=== PATIENT | male | born 1995 | race Caucasian/White ===

== ENCOUNTER 2023-09-05 18:47 | Emergency (ER) | payer OTHER, SELFPAY ==
--- NOTE | ~2023-09-05 | XR_ITS ---
EXAM: XR foot LT min 3V DATE: 09/05/2023 19:59 HISTORY: pain . COMPARISON: None available. FINDINGS: Normal mineralization. No fracture or dislocation. No lytic or blastic lesion. Joint space s are maintained. No erosion or periosteal change. Lateral forefoot soft tissue swelling. IMPRESSION: No acute osseous finding in the left foot. Reviewed, dictated and finalized at location K.
[2023-09-05 18:50] VITALS: BP 136/94; PULSE 101; RESP 19; TEMP 37.1; O2SAT 94
--- NOTE | 2023-09-05 19:38 | ED.EXTPRO ---
HPI - Extremity Problem General Chief complaint: Extremity Problem,Nontraumatic Stated complaint: left great toe pain Source: patient Mode of arrival: ambulatory Limitations: no limitations History of Present Illness HPI Narrative: patient is a 28-year-old male with a left foot pain for the past few days. He is having redness and difficulty moving the toe of the great toe. MD Complaint: extremity pain ( Left great toe), extremity swelling ( left great toe), joint swelling ( left great toe) and joint paint ( left great toe) Onset (ago): day(s) (3) Pain Consistency: constant Location: left, lower extremity and toe ( great toe) Severity scale (1-10): 5 Quality: burning and sharp Radiation: none Relieving factors: immobilization Exacerbating factors: range of motion, weight bearing, walking, exertion and palpation Associated symptoms: denies other symptoms Related Data Allergies Allergy/AdvReac Type Severity Reaction Status Date / Time loratadine Allergy Vomiting Verified 09/05/23 18:49 codeine AdvReac Vomiting Verified 09/05/23 18:49 Review of Systems Review of Systems: All systems reviewed & are unremarkable except as noted in HPI and below Constitutional: Constitutional: Reports no additional constitutional complaints Eyes: Eyes: Reports no additional eye complaints ENT: Reports system reviewed and no additional complaints, except as documented Cardiovascular: Cardiovascular: Reports no additional cardiovascular complaints Respiratory: Respiratory: Reports no additional respiratory complaints Gastrointestinal: Gastrointestinal: Reports no additional gastrointestinal complaints Genitourinary: Genitourinary: Reports no additional male genitourinary complaints Musculoskeletal: Musculoskeletal: Reports no additional musculoskeletal complaints Integumentary/Breasts: Skin/Breast: Reports system reviewed and no additional complaints, except as docu Neurologic: Reports system reviewed and no additional complaints, except as documented Psychiatric: Psychiatric: Reports no additional psychiatric complaints Endocrine: Endocrine: Reports no additional endocrine complaints Hematologic/Lymphatic: Hematologic/Lymphatic: Reports no additional hematologic/lymphatic complaints Allergic/Immunologic: Allergic/Immunologic: Reports no additional allergic/immunologic complaints Exam Const: General: healthy appearing Nutritional Appearance: well nourished Orientation/consciousness: patient oriented x3 HENMT: Head: normal to inspection Ears: external ears normal Face/Nose/Sinus: Normal external nose present Eyes: Conjunctivae: conjunctivae normal Pupils: Equal, round and reactive pupils present EOM: EOMs intact bilaterally Neck: Neck: normal visual inspection Chest: Chest palpation & inspection: normal inspection of the chest Resp: Effort & Inspection: normal respiratory effort and not labored Auscultation: clear to auscultation bilaterally Cardio: Rate: regular rate Rhythm: regular rhythm Heart sounds: no murmurs GI: Inspection: non-distended GI Palp: Yes Soft to palpation and No Tenderness to palpation present (GI) Auscultation: normal bowel sounds : General: Yes bladder normal to palpation Back/Spine/Pelvis: Back: no CVA tenderness Skin: General skin exam: normal color Rashes: rash noted Wounds: no wounds Other: left great toe is red at the MCP joint region and locally; tender to palpation and range of motion Neuro: General: patient oriented x3 Cranial nerves: Yes Nystagmus not present Speech: normal speech Extrem: General: normal to inspection Psych: Mental Status: mental status grossly normal Affect: normal affect Attitude: cooperative Course Vital Signs Vital signs: Vital Signs Oxygen Delivery Room Air 09/05/23 18:47 Temperature 37.1 C 09/05/23 18:50 Pulse Rate 101 H 09/05/23 18:50 Respiratory Rate 19 09/05/23 18:50 Blood Pressure 136/94 H 09/05/23 18:50 P
[2023-09-05] MEDS: KETOROLAC (*BKC) 60 MG/2 ML VIAL IM (19:40)
[2023-09-05] MEDS: COLCHICINE 0.6 MG TABLET 1.2 MG PO (19:49)
--- NOTE | 2023-09-05 19:54 | PC.NURSE ---
0 introduced self to pt, resumed care at this time.
[2023-09-05] MEDS: CEPHALEXIN 500 MG CAPSULE PO (20:25)
[2023-09-05 20:28] VITALS: BP 157/84; PULSE 87; RESP 20; TEMP 36.9; O2SAT 99
== END 2023-09-05 20:28 | disposition home or self-care (01) ==
PROVIDERS: Emergency Provider Emergency Medicine; PCP Physician Assistant
DX: M10.072 Idiopathic gout, left ankle and foot (principal)
CPT/HCPCS: 73630; 96372; 99283; A9270; J1885

== ENCOUNTER 2025-01-27 15:23 | Outpatient (RCR) | payer OTHER, SELFPAY ==
--- NOTE | 2025-01-27 16:45 | OPREHPOC ---
Outpatient Therapy Plan of Care This is a Multidisciplinary Plan of Care that may contain components documented by all disciplines (PT, OT, and ST.) PT Problem 1 PT Problem #1 Knowledge Deficit PT Goal 1 Goal / Goal Update Independent and compliant with HEP. Target Visit 2 PT Problem 2 PT Problem #2 Pain PT Goal 1 Goal / Goal Update Pt to report no worse than 5/10 pain in the low back. Target Visit 10 PT Problem 3 PT Problem #3 Impaired Strength PT Goal 1 Goal / Goal Update Pt to improve bilat hip strength to 4+/5. Pt to improve lower abdominal strength to 4/5. Target Visit 10 PT Problem 4 PT Problem #4 Impaired Range of Motion PT Goal 1 Goal / Goal Update Pt to demonstrate full pain-free AROM of the lumbar spine for improved mobility to perform work activities. Target Visit 10 PT Problem 5 PT Problem #5 Impaired Functional Mobility PT Goal 1 Goal / Goal Update Pt to report 20% reduction in perceived disability on Oswestry. Pt to report being able to stand for more than 2 hours at work without back pain. Target Visit 10
--- NOTE | 2025-01-27 16:45 | PTOPEVAL1 ---
Assessment and note entered by aLuren Lucas, PT Evaluation Information Assessment Status Evaluation ICD-10 Condition Codes (PT) Radiculopathy, lumbar region M54.16 Onset 05/22/2024 Subjective Information Pt reports he's been having back pain since May of this year. He was prescribed gabapentin and prednisone but the pain has persisted despite taking these. He reports it started with his legs going numb and now he moreso is just having back pain. He reports his legs don't go numb very often and when they do he sits down and it subsides. Standing/walking is worse than sitting, and he currently works overnights at [employer]. 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 He reports that he's unable to stand and walk for more than 30-60 minutes without pain, and by the time he's standing for more than 2 hours the pain is crippling. The pain wakes him up at night frequently, he reports he is able to fall asleep on his stomach and that all other positions are painful. He also notes that sneezing makes his back and his legs give out. He did get an MRI at [facility] which showed a mild disc bulge at L4-5 and mild spondylosis and anterolisthesis of L5 on S1. Reported Pain Level Pain Score 4: Self Report Assessment PT Clinical Summary Mr. Hodge is a 29 yo male presenting to skilled PT evaluation for lower back pain with MRI evidence of L4-5 bulging disc, lumbar spondylosis , and L5-S1 anterolisthesis. He demonstrates lower back pain with occasional radiating pain and numbness that causes him to fall, as well as moderate hip and abdominal mm weakness and reproductive of pain with resistive testing. He also demonstrates impaired lumbar AROM with pain reproduced with these movements. His deficits cause him to have difficulty sleeping and performing job activities involving lifting and prolonged standing. He will benefit from skilled PT intervention to address these deficits to be able to perform daily functional and occupational activities with improved efficiency and less pain. Plan of Care Interventions Electrical Stimulation,Gait Training,Hot Pack/Cold Pack,Manual Therapy,Mechanical Traction,Neuro Re- education,Patient/Caregiver Education,Therapeutic Activities,Therapeutic Exercise,Self-Care/Home Management PT Services Indicated Yes Treatment Frequency and 2x/week for 10 visits Duration These treatments will address the objective and functional deficits as defined above. The patient will be advanced safely and appropriately in order for the patient to progress towards his/her prior level of function. Additional exercises will be introduced and as well as a comprehensive home exercise program upon discharge, if needed, ?to ensure carryover of functional gains achieved in the clinic. This treatment plan has been reviewed and agreement upon by the patient.
--- NOTE | 2025-01-28 15:56 | PCPTNOTE ---
Patient called & cancelled scheduled appointment this date due to patient being sick. -Rosanne Maddox, PT
--- NOTE | 2025-02-18 16:06 | PCPTNOTE ---
Patient called & cancelled scheduled appointment this date.
== END 2025-04-27 23:59 | disposition home or self-care (01) ==
LOC: CHSPT 15:23
PROVIDERS: PCP Nurse Practitioner Family; Visit Provider Nurse Practitioner Family
DX: M54.16 Radiculopathy, lumbar region (principal)
CPT/HCPCS: 97014; 97110; 97161; G0283